=== PATIENT | female | born 1970 | race Caucasian/White ===

== ENCOUNTER 2020-04-21 08:30 | Outpatient (CLI) | payer OTHER, SELFPAY ==
--- NOTE | 2020-04-21 11:15 | NEURO_ITS ---
Patient Number: [id number] Impression: # Complains of numbness of feet. # Normal motor and sensory nerve conduction study including F-waves. # Normal needle/EMG exam. # Clinical correlation recommended. Nerve Conduction Studies Anti Sensory Summary Table Stim Site NR Peak (ms) P-T Amp (?V) Site1 Site2 Delta-P (ms) Dist (cm) Naresh (m/s) Left Sup Fibular Anti Sensory (Ant Lat Mall) 14 cm 3.0 30.6 14 cm Ant Lat Mall 3.0 16.0 53 Right Sup Fibular Anti Sensory (Ant Lat Mall) 14 cm 3.3 16.3 14 cm Ant Lat Mall 3.3 16.0 48 Left Sural Anti Sensory (Lat Mall) Calf 3.0 17.3 Calf Lat Mall 3.0 16.0 53 Right Sural Anti Sensory (Lat Mall) Calf 3.5 15.2 Calf Lat Mall 3.5 16.0 46 Motor Summary Table Stim Site NR Onset (ms) O-P Amp (mV) Site1 Site2 Delta-0 (ms) Dist (cm) Naresh (m/s) Left Peroneal Motor (Vastus Med) Ankle 4.1 2.7 Popit Ankle 7.6 39.0 51 Popit 11.7 2.1 Right Peroneal Motor (Vastus Med) Ankle 3.7 1.6 Popit Ankle 7.6 38.0 50 Popit 11.3 1.1 Left Tibial Motor (Abd Inman Brev) Ankle 4.1 6.9 Knee Ankle 8.5 41.0 48 Knee 12.6 5.8 Right Tibial Motor (Abd Inman Brev) Ankle 4.2 3.8 Knee Ankle 8.8 42.0 48 Knee 13.0 6.0 F Wave Studies NR F-Lat (ms) L-R F-Lat (ms) Left Peroneal (Mrkrs) (EDB) 46.84 1.10 Right Peroneal (Mrkrs) (EDB) 45.74 1.10 Left Tibial (Mrkrs) (Abd Hallucis) 46.81 1.49 Right Tibial (Mrkrs) (Abd Hallucis) 45.32 1.49 EMG Side Muscle Nerve Root Ins Act Fibs Amp Dur Recrt Comment Right AntTibialis Dp Br Fibular L4-5 Nml Nml Nml Nml Nml Right Gastroc Tibial S1-2 Nml Nml Nml Nml Nml Right Fibularis Long Sup Br Fibular L5-S1 Nml Nml Nml Nml Nml Right Flex Dig Long Tibial L5-S2 Nml Nml Nml Nml Nml Right Ext Dig Brev Dp Br Fibular L5, S1 Nml Nml Nml Nml Nml Left AntTibialis Dp Br Fibular L4-5 Nml Nml Nml Nml Nml Left Gastroc Tibial S1-2 Nml Nml Nml Nml Nml Left Fibularis Long Sup Br Fibular L5-S1 Nml Nml Nml Nml Nml Left Flex Dig Long Tibial L5-S2 Nml Nml Nml Nml Nml Left Ext Dig Brev Dp Br Fibular L5, S1 Nml Nml Nml Nml Nml Right QuadratusFem QuadFemoris L4-5, S1 Nml Nml Nml Nml Nml Left QuadratusFem QuadFemoris L4-5, S1 Nml Nml Nml Nml Nml MTDD
== END 2020-04-21 08:31 | disposition home or self-care (01) ==
LOC: ANHNEURO 08:33
PROVIDERS: PCP Emergency Medicine; Visit Provider Emergency Medicine
DX: G62.9 Polyneuropathy, unspecified (principal)
CPT/HCPCS: 95886; 95910

== ENCOUNTER 2020-06-19 20:23 | Emergency (ER) | payer OTHER, SELFPAY ==
--- NOTE | ~2020-06-19 | XR_ITS ---
EXAMINATION: XR elbow LT min 3V DATE: 06/19/2020 21:24 INDICATION: Left elbow pain TECHNIQUE: Anteroposterior, two oblique and lateral views of the left elbow were obtained. COMPARISON: None. FINDINGS: Alignment is normal. No fracture or joint effusion. Joint spaces are normal. Soft tissues a re unremarkable. IMPRESSION: 1. No acute osseous abnormality. Reviewed, dictated and finalized at location A.
[2020-06-19 20:50] VITALS: BP 125/66; PULSE 59; RESP 17; TEMP 37; O2SAT 99
--- NOTE | 2020-06-19 23:11 | ED.EXTPRO ---
HPI - Extremity Problem General Chief complaint: Extremity Problem,Nontraumatic Stated complaint: left arm pain Time Seen by Provider: 06/19/20 23:10 History of Present Illness HPI Narrative: Left elbow pain for the past few hours. Radiates to the shoulder. No trauma. No activities out of the ordinary. Related Data Allergies Allergy/AdvReac Type Severity Reaction Status Date / Time Sulfa (Sulfonamide Allergy Mild Verified 06/24/19 11:15 Antibiotics) naproxen Allergy Unknown Verified 06/24/19 11:15 Review of Systems Review of Systems: All systems reviewed & are unremarkable except as noted in HPI and below PMFSH Social History Social History Gender identity (if verbalized by the patient): Female Exam Const: General: no acute distress and alert Orientation/consciousness: patient oriented x3 HENMT: Head: normal to inspection Resp: Effort & Inspection: normal respiratory effort Skin: General skin exam: normal color Rashes: no rashes Wounds: no wounds Neuro: General: patient oriented x3, moves all extremities and CN's II-XI intact bilaterally Speech: normal speech Extrem: General: normal to inspection Other: Pain with active movment of left arm, otherwise normal exam Course Vital Signs Vital signs: Vital Signs Temperature 37.0 C 06/19/20 20:50 Pulse Rate 59 L 06/19/20 20:50 Respiratory Rate 17 06/19/20 20:50 Blood Pressure 125/66 06/19/20 20:50 Pulse Oximetry 99 06/19/20 20:50 Temperature 37.0 C 06/19/20 20:50 Pulse Rate 54 L 06/19/20 23:48 Respiratory Rate 17 06/19/20 23:48 Blood Pressure 114/76 06/19/20 23:48 Pulse Oximetry 98 06/19/20 23:48 Discharge Plan Discharge Clinical Impression: Elbow pain, left Patient Disposition: Home, Self-Care Condition: Stable Instructions: Arm Pain (ED) Follow-up/Referrals: Esdras Smart MD [Primary Care Provider] - Discharge Date/Time: 06/19/20 23:50
--- NOTE | 2020-06-19 23:21 | PC.NURSE ---
Report received from FERNANDA Cruz. Assumed care of patient at this time.
[2020-06-19 23:24] VITALS: PULSE 55; RESP 14; O2SAT 99
[2020-06-19] MEDS: KETOROLAC (*BKC) 60 MG/2 ML VIAL IM (23:24)
[2020-06-19 23:48] VITALS: BP 114/76; PULSE 54; RESP 17; O2SAT 98
== END 2020-06-19 23:50 | disposition home or self-care (01) ==
PROVIDERS: Emergency Provider Emergency Medicine; PCP Emergency Medicine
DX: M25.522 Pain in left elbow (principal)
CPT/HCPCS: 73080; 96372; 99283; A4565; J1885

== ENCOUNTER 2023-01-16 10:52 | Outpatient (CLI) | payer OTHER, SELFPAY ==
--- NOTE | ~2023-01-16 | NM_ITS ---
EXAMINATION: NM parathyroid imaging w spect DATE: 01/16/2023 15:42 INDICATION: Parathyroid adenoma with elevated calcium and parathyroid hormone level TECHNIQUE: 20.3 mCi Tc99m tetrofosmin (Myoview) was administered by intravenous route. Anterior image s of the neck were obtained at 10 minutes and 3 hours. COMPARISON: None. FINDINGS/IMPRESSION: There is no focus of persistent activity in the area of the thyroid or mediastinum to suggest parathy roid adenoma. Reviewed, dictated and finalized at location A. 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
== END 2023-01-16 10:53 | disposition home or self-care (01) ==
PROVIDERS: PCP Nurse Practitioner Family; Visit Provider Otolaryngology
DX: D35.1 Benign neoplasm of parathyroid gland (principal)
CPT/HCPCS: 78071; A9500